=== PATIENT | male | born 1985 | race Caucasian/White ===

== ENCOUNTER 2017-12-15 08:11 | Emergency (ER) | payer MEDICARE ==
[~2017-12-15] VITALS: Ht 180.3 cm; Wt 64.1 kg
[2017-12-15 08:13] VITALS: BP 134/87
[2017-12-15] MEDS ORDERED: OXYcodone/APAP 5/325MG TABLET PO ONE (09:30)
[2017-12-15] MEDS ORDERED: OXYcodone/APAP 5/325MG TABLET ONE (09:36)
== END 2017-12-15 10:33 | disposition home or self-care (01) ==
LOC: ED 10:06
DX: M79.671 Pain in right foot (principal); M20.41 Other hammer toe(s) (acquired), right foot; Z98.890 Other specified postprocedural states
CPT/HCPCS: 99283